=== PATIENT | female | born 1980 | race Caucasian/White ===

== ENCOUNTER 2021-01-05 14:45 | Emergency (ER) | payer BC, SELFPAY ==
--- NOTE | 2021-01-05 15:28 | PC.NURSE ---
Attempt to triage. Pt on personal cell phone call. Pt stepped out for phone call.
[2021-01-05 15:37] VITALS: BP 136/69; PULSE 62; RESP 18; TEMP 36.9; O2SAT 99; BMI 24.5
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
[2021-01-05 19:31] VITALS: BP 141/78; PULSE 51; O2SAT 100
[2021-01-05 19:42] VITALS: BP 141/78; PULSE 53; RESP 16; O2SAT 100
== END 2021-01-05 19:46 | disposition home or self-care (01) ==
PROVIDERS: Emergency Provider Nurse Practitioner Family
DX: S13.4XXA Sprain of ligaments of cervical spine, initial encounter (principal); V89.2XXA Person injured in unspecified motor-vehicle accident, traffic, initial encounter
CPT/HCPCS: 70360; 99282